=== PATIENT | female | born 1945 | race Caucasian/White ===

== ENCOUNTER → 2016-10-15 | Outpatient (CLI) | payer OTHER, MEDICARE ==
[~2016-10-15] MED LIST: ABILIFY 5 MG TAB5 M1 PO; ABILIFY PO; AMITRIPTYLINE H25 M2 PO; AMITRIPTYLINE H50 M3 PO; CALCIUM CITRAT1 EA14; CARDIZEM120 MG PO; CENTRUM TABLET1 TAB PO; CITRACAL + D C1 EACH PO; DILTIAZEM ER360 MG PO; ESTRACE1 MG PO; FENOFIBRATE160 MG PO; FISH OIL 1,001000 M2; GABAPENTIN100 MG PO; HYDROCODON-ACE1 EAC7 PO; HYDROCODONE-AP1 EACH PO; IBUPROFEN 200200 M1 PO; IBUPROFEN 600600 M1 PO; IMITREX 50 MG T50 M1 PO; LEVOXYL50 MCG PO; LIPITOR20 MG PO; MAXALT; MELATONIN10 M1 PO; MELATONIN5 M1 PO; NABUMETONE 500500 M1 PO; NEURONTIN 300M300 M2 PO; OXYCONTIN10 M1 PO; OXYCONTIN20 M1 PO; PERCOCET 10-321 EACH PO; PERCOCET 5-3251 EACH PO; PHENERGAN 25 MG25 M1 PO; PRISTIQ100 MG PO; PROZAC40 MG PO; ROBAXIN 750 MG750 M1 PO; TAZTIA PO; ULTRAM 50MG TAB50 MG PO; VITAMIN D3400 UNI2 PO
== END ==
LOC: RAD 01:03
DX: Z12.31 Encounter for screening mammogram for malignant neoplasm of breast (principal)